=== PATIENT | male | born 1970 | race Caucasian/White ===

== ENCOUNTER 2017-02-13 09:25 | Day surgery (SDC) | payer BC ==
[~2017-02-13 09:25] MED LIST: Lactated Ringers 1,000 ML IV SCH
--- NOTE | 2017-02-13 10:10 | PCM.PREANE ---
Preanesthetic Assessment - Anesthesia/Transfusion/Family Hx Anesthesia History: Prior Anesthesia Without Reaction Family History of Anesthesia Reaction: No Transfusion History: No Prior Transfusion(s) Intubation History: Unknown - Review of Systems General: No Symptoms Pulmonary: No Symptoms Cardiovascular: No Symptoms Gastrointestinal: Difficulty Swallowing Neurological: No Symptoms Other: Reports: None - Physical Assessment O2 Sat by Pulse Oximetry: 97 Respiratory Rate: 16 Vital Signs: Last Vital Signs Temp 36.2 C 02/13/17 09:31 Pulse 51 L 02/13/17 09:31 Resp 16 02/13/17 09:31 BP 134/80 02/13/17 09:31 Pulse Ox 97 02/13/17 09:31 Height: 1.73 m Weight: 95.708 kg ASA Class: 2 Mental Status: Alert & Oriented x3 Airway Class: Mallampati = 2 Dentition: Reports: Normal Dentition Thyro-Mental Finger Breadths: 3 Mouth Opening Finger Breadths: 2 ROM/Head Extension: Full Lungs: Clear to Auscultation, Normal Respiratory Effort Cardiovascular: Regular Rate, Regular Rhythm - Allergies Allergies/Adverse Reactions: Allergies Allergy/AdvReac Type Severity Reaction Status Date / Time Penicillins Allergy Rash Verified 02/06/17 12:18 - Anesthesia Plan Pre-Op Medication Ordered: None - Acknowledgements Anesthesia Type Planned: MAC Pt an Appropriate Candidate for the Planned Anesthesia: Yes Alternatives and Risks of Anesthesia Discussed w Pt/Guardian: Yes Pt/Guardian Understands and Agrees with Anesthesia Plan: Yes PreAnesthesia Questionnaire HEENT History: Reports: Other (See Below) Other HEENT History: bottom partial Gastrointestinal History: Reports: GERD, Other (See Below) Other Gastrointestinal History: barretts esophagus Genitourinary History: Reports: None Musculoskeletal History: Reports: Arthritis (bilat. knees and right shoulder) Endocrine/Metabolic History: Reports: Obesity/BMI 30+ - Past Surgical History Head Surgeries/Procedures: Reports: None HEENT Surgical History: Reports: Other (See Below) Other HEENT Surgeries/Procedures: marilou ear surgery GI Surgical History: Reports: EGD Musculoskeletal Surgical History: Reports: Arthroscopic Knee - SUBSTANCE USE Smoking Status *Q: Never Smoker Recreational Drug Use History: No - HOME MEDS Home Medications: Home Meds Diclofenac Sodium [Voltaren] 1 tab PO BID 02/06/17 [History] Testosterone Cypionate 1 injection IM ASDIRECTED 02/06/17 [History] - CURRENT (IN HOUSE) MEDS Current Meds: Current Medications Lactated Ringer's (Ringers, Lactated) 1,000 mls @ 125 mls/hr IV ASDIRECTED [facility] Last Admin: 02/13/17 09:35 Dose: 125 mls/hr
[2017-02-13] MEDS ORDERED: Lidocaine 2% 5 ML SDV ONE (10:20)
[2017-02-13] MEDS ORDERED: Propofol 200 MG/20 ML SDV ONE ×2 (10:20→11:24)
[2017-02-13] MEDS ORDERED: Midazolam 1 MG/ML 2 ML SDV ONE (10:20)
--- NOTE | 2017-02-13 11:43 | PCM.OPNOTE ---
- General Post-Op/Procedure Note Date of Surgery/Procedure: 02/13/17 Operative Procedure(s): egd w bx Findings: see dict [id number] Pre Op Diagnosis: barrette esophagus Post-Op Diagnosis: Same Anesthesia Technique: Moderate Sedation Primary Surgeon: Rickie Plummer Pathology: antrum, body, ge junction at 35, bx at 25, and 20cm Complications: None Condition: Good
[2017-02-13 13:10] VITALS: BP 123/77
--- NOTE | 2017-02-13 13:27 | OR ---
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 PROCEDURE PERFORMED: Esophagogastroduodenoscopy with 4-corner biopsy. Procedure in details: The patient was taken to the endoscopy room, and with the GLOBAL PRESIDENT, Diprivan was administered. A well-lubricated EGD scope was gently inserted through the oropharynx, down the esophagus, passing through the gastroesophageal junction, into the stomach. The mucosa was examined upon the passage. Any etiology will be noted. Once in the stomach, we continued to advance to the distal antrum, passed through the pylorus into the second portion of the duodenum. Again, the mucosa was examined for any abnormality and etiology. The scope was then retrieved back to the stomach and then retroflexed to look at the fundus of the stomach. If a biopsy was indicated, we will biopsy the antrum, body, and gastroesophageal junction. The air will be sucked out while the scope is retrieved to reduce the patient's discomfort. Esophageal abnormality was noted. biopsy done at ge junction at 40cm, inflamation at 25 cm, and 20cm. The patient tolerated the procedure well. There were no intraoperative complications. Dr. Plummer was present through the whole procedure. Prior to surgery, a time-out had been called, the patient identified, procedure identified and antibiotic administered. COMPLICATIONS: None. FINDINGS: 1. The patient is easily sedated with GLOBAL PRESIDENT and Diprivan. The patient is soundly snoring. 2. Oropharynx is normal in appearance and proximal esophagus does not show any stricture or narrowing, but an aphthous ulcer about a size of 2 mm was observed at 18 cm into the esophagus and then with some kind of couple stone and lesion observed at 20-25 cm of the esophagus flame-like structure, inflammation. No narrow or clear ulcer observed. GE junction at 35 surprisingly does not seem too much of color change, suggests acid reflux, I mean there is some but not a lot. Stomach rugae is normal in appearance. There is no food particle, bile, blood, or ulcer observed. Antrum is a little bit inflamed and duodenum was grossly normal in appearance. Retroflexed look at the fundus of the stomach, there is mild hiatal hernia. Biopsy of the antrum, biopsy of the stomach body, and then 4-corner biopsy at GE junction at 35 and then biopsy at the flame-like structure x2 at 25 and biopsy at the another area at around 20. All this biopsy with different specimen bottle and sucked out the air when scope pulling out. BRYAN ANDERSON /[id number] MTDMarina
== END 2017-02-13 12:58 | disposition home or self-care (01) ==
LOC: MW.SDS 09:25
PROVIDERS: ATTEND Surgery
DX: K22.70 Barrett's esophagus without dysplasia (principal); K20.9 Esophagitis, unspecified; K44.9 Diaphragmatic hernia without obstruction or gangrene; M17.0 Bilateral primary osteoarthritis of knee; M19.011 Primary osteoarthritis, right shoulder; E66.9 Obesity, unspecified; Z88.0 Allergy status to penicillin; Z79.899 Other long term (current) drug therapy; Z98.890 Other specified postprocedural states; Z68.32 Body mass index [BMI] 32.0-32.9, adult
CPT/HCPCS: 43239; J2250; J7120; 88305; 88312; J2704